=== PATIENT | male | born 1990 | race Two or more races ===

== ENCOUNTER 2018-11-16 17:27 | Emergency (ER) | payer SELFPAY ==
[~2018-11-16] VITALS: Ht 172.7 cm; Wt 63.5 kg
[2018-11-16] MEDS ORDERED: LIDOCAINE HCL 2% LOCAL 20 ML VIAL ONE (18:11)
[2018-11-16] MEDS ORDERED: LIDOCAINE HCL 2% LOCAL 20 ML VIAL INJ ONE (18:15)
== END 2018-11-16 18:20 | disposition home or self-care (01) ==
LOC: FSED 17:27
DX: M79.644 Pain in right finger(s) (principal); L03.011 Cellulitis of right finger
CPT/HCPCS: 10060; 99283; J2001; 26010